=== PATIENT | female | born 1960 | race Caucasian/White ===

== ENCOUNTER → 2017-12-24 | Outpatient (CLI) | payer BC ==
--- NOTE | 2017-12-25 13:36 | MM ---
Reason for exam: screening (asymptomatic). Last mammogram was performed 1 year and 2 months ago. History: Patient is postmenopausal. Physical Findings: A clinical breast exam by your physician is recommended on an annual basis and results should be correlated with mammographic findings. MG Screening Mammo w CAD Bilateral CC and MLO view(s) were taken. Prior study comparison: October 10, 2016, bilateral MG screening mammo w CAD. November 06, 2012, bilateral digital screening mammo w/CAD. There are scattered fibroglandular densities. No significant changes when compared with prior studies. ASSESSMENT: Negative, BI-RAD 1 RECOMMENDATION: Routine screening mammogram of both breasts in 1 year.
== END | disposition home or self-care (01) ==
LOC: RADMAMWWP 09:57
PROVIDERS: ATTEND Family Medicine
DX: Z12.31 Encounter for screening mammogram for malignant neoplasm of breast (principal)
CPT/HCPCS: 77067

== ENCOUNTER → 2019-06-03 | Outpatient (CLI) | payer BC ==
--- NOTE | 2019-06-04 07:39 | MM ---
Reason for exam: screening (asymptomatic). Last mammogram was performed 1 year and 5 months ago. History: Patient is postmenopausal. Physical Findings: A clinical breast exam by your physician is recommended on an annual basis and results should be correlated with mammographic findings. MG 3D Screening Mammo W/Cad Bilateral CC and MLO view(s) were taken. Prior study comparison: December 24, 2017, bilateral MG screening mammo w CAD. October 10, 2016, bilateral MG screening mammo w CAD. There are scattered fibroglandular densities. No suspicious abnormality. No significant changes when compared with prior studies. ASSESSMENT: Negative, BI-RAD 1 RECOMMENDATION: Routine screening mammogram of both breasts in 1 year.
== END | disposition home or self-care (01) ==
LOC: RADMAMWWP 09:55
PROVIDERS: ATTEND Family Medicine
DX: Z12.31 Encounter for screening mammogram for malignant neoplasm of breast (principal)
CPT/HCPCS: 77063; 77067

== ENCOUNTER → 2021-10-25 | Outpatient (CLI) | payer BC ==
--- NOTE | 2021-10-26 12:56 | MM ---
Reason for exam: screening (asymptomatic). Last mammogram was performed 2 years and 5 months ago. History: Patient is postmenopausal. Physical Findings: A clinical breast exam by your physician is recommended on an annual basis and results should be correlated with mammographic findings. MG 3D Screening Mammo W/Cad Bilateral CC and MLO view(s) were taken. Prior study comparison: June 03, 2019, bilateral MG 3d screening mammo w/cad. December 24, 2017, bilateral MG screening mammo w CAD. There are scattered fibroglandular densities. There is no discrete abnormality. ASSESSMENT: Negative, BI-RAD 1 RECOMMENDATION: Routine screening mammogram of both breasts in 1 year.
== END | disposition home or self-care (01) ==
LOC: RADMAMWWP 16:34
PROVIDERS: ATTEND Family Medicine
DX: Z12.31 Encounter for screening mammogram for malignant neoplasm of breast (principal); Z78.0 Asymptomatic menopausal state
CPT/HCPCS: 77063; 77067

== ENCOUNTER → 2022-01-24 | Outpatient (CLI) | payer BC ==
[2022-01-24 18:26] LABS: Basophils # (A) 0.07 X 10*3/uL (0.00-0.10); Basophils % (A) 0.9 %; Eosinophils # (A) 0.25 X 10*3/uL (0.04-0.35); Eosinophils % (A) 3.2 %; HCT 44.2 % (37.2-46.3); HGB 14.3 g/dL (12.0-15.0); Immature Grans, Automated 0.5 %; Lymphocytes # (A) 1.01 X 10*3/uL (0.90-5.00); Lymphocytes % (A) 13.1 %; MCH 28.7 pg (27.0-32.0); MCHC 32.4 g/dL (32.0-37.0); MCV 88.6 fL (80.0-97.0); Mean Platelet Volume 12.4 fL (9.5-12.2); Monocytes # (A) 0.47 X 10*3/uL (0.20-1.00); Monocytes % (A) 6.1 %; NRBC Per 100 WBC 0 /100 WBCS (0.0-0.0); Neutrophils # (A) 5.87 X 10*3/uL (1.80-7.70); Neutrophils % (A) 76.2 %; Platelet Count 288 X 10*3/uL (140-440); RBC 4.99 X 10*6/uL (4.10-5.20); RDW 14.1 % (11.5-14.5); WBC 7.71 X 10*3/uL (4.50-10.00)
== END | disposition home or self-care (01) ==
LOC: LABPAT 11:03
PROVIDERS: ATTEND Obstetrics & Gynecology Obstetrics
DX: Z01.812 Encounter for preprocedural laboratory examination (principal); N84.0 Polyp of corpus uteri; N95.0 Postmenopausal bleeding
CPT/HCPCS: 85025

== ENCOUNTER 2022-01-29 08:25 | Day surgery (SDC) | payer BC ==
[2022-01-24 15:51] VITALS: BMI 29.9
[~2022-01-29 08:25] MED LIST: DEXAMETHASONE SOD PHOSPHATE 4 MG/ML 1 ML VIAL IV ONE; LACTATED RINGERS 1,000 ML IV SCH; LIDOCAINE 1% (10MG/ML) FOR IV START INTRADERMA PRN; ONDANSETRON 4 MG/2 ML VIAL IVP ONE; Pre Op ABX Message 1 EACH MISC MISCELLANE ONE; SCOPOLAMINE 1.5MG/72HR PATCH TRANSDERM ONE; fentaNYL (PF) 50 MCG/ML 2 ML AMP IV PRN
[2022-01-29] MEDS ORDERED: KETOROLAC 15 MG/ML 1 ML VIAL ONE (10:24)
[2022-01-29] MEDS ORDERED: PROPOFOL 10 MG/ML 20 ML VIAL IV ONE (10:24)
[2022-01-29] MEDS ORDERED: MIDAZOLAM 2 MG/2 ML VIAL ONE (10:24)
[2022-01-29] MEDS ORDERED: fentaNYL (PF) 50 MCG/ML 2 ML AMP ONE (10:24)
[2022-01-29] MEDS ORDERED: LIDOCAINE 1% INJ 10MG/ML (20 ML MDV) ONE (10:24)
--- NOTE | 2022-01-29 10:54 | P.OP ---
Date of Procedure: 01/29/22 Preoperative Diagnosis: Postmenopausal bleeding, endometrial polyp Postoperative Diagnosis: Same Procedure(s) Performed: Hysteroscopy, dilation and curettage Anesthesia: MAC Surgeon: Jannette Layne Estimated Blood Loss (ml): 2 IV fluids (ml): 200 Urine output (ml): 50 Pathology: other (Endometrial curettings) Condition: stable Disposition: PACU Indications for Procedure: Postmenopausal bleeding, endometrial biopsy revealing endometrial polyp. Operative Findings: Normal atrophic appearing endometrial cavity Description of Procedure: Patient was taken back to the operating suite where general anesthesia was obtained without difficulty by the anesthesia department. She was prepped and draped in normal sterile fashion in the dorsal lithotomy position. A red rubber catheter was then used to drain the bladder of clear yellow urine. A weighted speculum was placed in the posterior vaginal vault the anterior lip the cervix is visualized and grasped with a single-tooth tenaculum. The endocervical canal was then serially dilated. Hysteroscope was placed through the cervix and toward the endometrial cavity the cavity was intact and atrophic in nature no polyps were appreciated pictures were taken and the hysteroscope was removed. A sharp curettage was then performed this specimen was then sent to pathology for analysis. The single-tooth tenaculum was taken off of the anterior lip of the cervix hemostasis was appreciated. All instruments were then removed from the patient's vaginal vault. All counts were noted to be correct 2 at the end of the procedure. Patient tolerated procedure well and was taken the recovery room awake in stable condition.
[2022-01-29 11:02] VITALS: RESP 16; TEMP 96.9
[2022-01-29 11:53] VITALS: BP 135/72; PULSE 72
== END 2022-01-29 12:33 | disposition home or self-care (01) ==
LOC: OR 08:25
PROVIDERS: ATTEND Obstetrics & Gynecology Obstetrics
DX: N84.0 Polyp of corpus uteri (principal); N95.0 Postmenopausal bleeding; F41.9 Anxiety disorder, unspecified; J45.909 Unspecified asthma, uncomplicated; F32.A Depression, unspecified; J44.9 Chronic obstructive pulmonary disease, unspecified; Z98.890 Other specified postprocedural states; Z88.5 Allergy status to narcotic agent; Z83.3 Family history of diabetes mellitus; Z80.1 Family history of malignant neoplasm of trachea, bronchus and lung; Z87.891 Personal history of nicotine dependence
CPT/HCPCS: 88305; 58558; J2250; J1100; J2405; J2001; J3010; J1885; J2704

== ENCOUNTER → 2023-07-08 | Outpatient (CLI) | payer BC ==
--- NOTE | 2023-07-09 10:09 | MM ---
Reason for Exam: Screening (asymptomatic). Last mammogram was performed 1 year(s) and 8 month(s) ago. Patient History: Menarche at age 9. First Full-Term at age 25. Postmenopausal. Risk Values: Katerina 5 year model risk: 2.0%. NCI Lifetime model risk: 7.9%. Prior Study Comparison: 12/24/2017 Bilateral Screening Mammogram, [facility]. 06/03/2019 Bilateral Screening Mammogram, [facility]. 10/25/2021 Bilateral Screening Mammogram, [facility]. Tissue Density: There are scattered fibroglandular densities. Findings: Analyzed By CAD. There is no suspicious group of microcalcifications or new suspicious mass in either breast. Overall Assessment: Negative, BI-RAD 1 Management: Screening Mammogram of both breasts in 1 year. A clinical breast exam by your physician is recommended on an annual basis and results should be correlated with mammographic findings. Note on Katerina scores and lifetime risk: 1. A Katerina score greater than 3% is considered moderate risk. If this is the case, consider specialist referral to assess eligibility for a risk reducing agent. If overall lifetime risk for the development of breast cancer is 20% or higher, the patient may qualify for future screening with alternating mammogram and breast MRI. Electronically signed and approved by: Eren Henning D.O.
== END | disposition home or self-care (01) ==
LOC: RADMAMWWP 12:23
PROVIDERS: ATTEND Family Medicine
DX: Z12.31 Encounter for screening mammogram for malignant neoplasm of breast (principal); Z78.0 Asymptomatic menopausal state
CPT/HCPCS: 77063; 77067

== ENCOUNTER 2024-02-24 17:04 | Emergency (ER) | payer BC, MEDICARE ==
[2024-02-24 17:21] VITALS: TEMP 97.9
[2024-02-24 17:43] LABS: Basophils # (A) 0.1 k/uL (0-0.2); Basophils % (A) 1 %; Eosinophils # (A) 0.4 k/uL (0-0.7); Eosinophils % (A) 3 %; HCT 48.1 % (34.0-46.0); HGB 15.6 gm/dL (11.4-16.0); Lymphocytes # (A) 1.1 k/uL (1.0-4.8); Lymphocytes % (A) 9 %; MCH 28.3 pg (25.0-35.0); MCHC 32.4 g/dL (31.0-37.0); MCV 87.4 fL (80.0-100.0); Mean Platelet Volume 9.5; Monocytes # (A) 0.5 k/uL (0-1.0); Monocytes % (A) 4 %; Neutrophils # (A) 9.9 k/uL (1.3-7.7); Neutrophils % (A) 82 %; Platelet Count 326 k/uL (150-450); RBC 5.51 m/uL (3.80-5.40); RDW 13.2 % (11.5-15.5); WBC 12.1 k/uL (3.8-10.6)
[2024-02-24 17:52] LABS: ALT 29 U/L (4-34); AST 31 U/L (14-36); African American GFR (CKD) >90 (>60 ml/min/1.73 sqM); Albumin 4.3 g/dL (3.5-5.0); Alkaline Phosphatase 103 U/L (38-126); Anion Gap 6 mmol/L; Blood Urea Nitrogen 11 mg/dL (7-17); Calcium 9.6 mg/dL (8.4-10.2); Carbon Dioxide 31 mmol/L (22-30); Chloride 104 mmol/L (98-107); Glucose 107 mg/dL (74-99); Magnesium 2.1 mg/dL (1.6-2.3); Non-African American GFR(CKD) >90 (>60 ml/min/1.73 sqM); Potassium 3.9 mmol/L (3.5-5.1); Sodium 141 mmol/L (137-145); Total Bilirubin 0.4 mg/dL (0.2-1.3); Total Protein 7.3 g/dL (6.3-8.2)
--- NOTE | 2024-02-24 17:54 | XR ---
EXAMINATION TYPE: XR chest 2V DATE OF EXAM: 02/24/2024 COMPARISON: None INDICATION: Chest pain TECHNIQUE: Frontal and lateral views of the chest are obtained. FINDINGS: The heart size is normal. The pulmonary vasculature is normal. The lungs are clear. IMPRESSION: 1. No acute pulmonary process.
[2024-02-24 17:55] LABS: INR 0.9 (<1.2); Partial Thromboplastin Time 23.1 sec (22.0-30.0); Prothrombin Time 9.7 sec (10.0-12.5)
--- NOTE | 2024-02-24 18:30 | ED ---
Chest Pain HPI - General Source: patient, RN notes reviewed Mode of arrival: ambulatory Limitations: no limitations <Kelsi Bee - Last Filed: 02/24/24 18:35> <Leila Logan - Last Filed: 02/25/24 01:52> - General Chief Complaint: Chest Pain Stated Complaint: Chest pain Time Seen by Provider: 02/24/24 18:30 - History of Present Illness Initial Comments: Quick note: 63-year-old female presenting to the ER with chief complaint of right-sided chest pain. She states that started yesterday and is endorsing sh ortness of breath. Denies any known cardiac history. (Kelsi Bee) 63-year-old female presenting with chief complaint of chest pain. Pain started yesterday. Located over the right side of the chest. It is an aching pain. She states that she does get some shortness of breath associated with the pain. Pain is worse on palpation. She was seen at her PCPs office today, who advised her to report to the ER. She has no lower extremity swelling, history of blood clots, recent surgery, long travel. No known cardiac history. No cough, congestion, sore throat, fever, chills, nausea, vomiting. (Leila Logan) - Related Data Home Medications Medication Instructions Recorded Confirmed Albuterol Sulfate [Albuterol 2 puff PO Q6H PRN 01/24/22 01/24/22 Sulfate Hfa] Ascorbic Acid [Vitamin C] 500 mg PO DAILY 01/24/22 01/24/22 Budesonide/Glycopyr/Formoterol 1 puff INHALATION BID 01/24/22 01/24/22 [Breztri Aerosphere Inhaler] Cholecalciferol [Vitamin D3 (25 25 mcg PO DAILY 01/24/22 01/24/22 Mcg = 1000 Iu)] Zinc 50 mg PO DAILY 01/24/22 01/24/22 Previous Rx's Medication Instructions Recorded methylPREDNISolone Dose Pack 4 mg PO DIRECTED #1 packet 02/25/24 [Medrol Dose Pack] Allergies Allergy/AdvReac Type Severity Reaction Status Date / Time codeine AdvReac Nausea & Verified 02/24/24 17:09 Vomiting Review of Systems ROS Other: All systems not noted in ROS Statement are negative. <Kelsi Bee - Last Filed: 02/24/24 18:35> ROS Other: All systems not noted in ROS Statement are negative. <Leila Logan - Last Filed: 02/25/24 01:52> ROS Statement: Those systems with pertinent positive or pertinent negative responses have been documented in the HPI. Past Medical History Past Medical History: COPD History of Any Multi-Drug Resistant Organisms: None Reported Past Psychological History: No Psychological Hx Reported Smoking Status: Former smoker Past Alcohol Use History: Daily Past Drug Use History: None Reported <Kelsi Bee - Last Filed: 02/24/24 18:35> General Exam Limitations: no limitations <Kelsi Bee - Last Filed: 02/24/24 18:35> Limitations: no limitations General appearance: alert, in no apparent distress Head exam: Present: atraumatic, normocephalic Eye exam: Present: normal appearance, EOMI Neck exam: Present: normal inspection. Absent: meningismus Respiratory exam: Present: normal lung sounds bilaterally, chest wall tenderness. Absent: respiratory distress, wheezes, rales, rhonchi, stridor Cardiovascular Exam: Present: regular rate, normal rhythm, normal heart sounds. Absent: systolic murmur, diastolic murmur, rubs, gallop, clicks Extremities exam: Absent: pedal edema Neurological exam: Present: alert, oriented X3 Psychiatric exam: Present: normal affect, normal mood Skin exam: Present: warm, dry <Leila Logan - Last Filed: 02/25/24 01:52> - General Exam Comments Initial Comments: Visual Physical Exam Vital signs reviewed General: Well-appearing, nontoxic, no acute distress. Head: Normocephalic, atraumatic Eyes: PERRLA, EOMI ENT: Airway patent Chest: Nonlabored breathing Skin: No visual rash, normal skin tone Neuro: Alert and oriented 3 Musculoskeletal: No gross abnormalities (Kelsi Bee) Course Vital Signs 02/24/24 02/25/24 17:07 00:32 Temperature 97.9 F Pulse Rate 117 H 84 Respiratory 20 18 Rate Blood Pressure 167/84 146/94 O2 Sat by Pulse 95 97 Oximetry Chest Pain MDM <Kelsi Bee - Last Filed: 02/24/24 18:35> <Leila Logan - Last Filed: 02/25/24 01:52> - MDM I performed the quick note portion of this chart. Electronically signed by Kelsi Bee PA-C (Kelsi Bee) Was pt. sent in by a medical professional or institution ([facility], VISUAL EFFECTS ARTIST, urgent care, hospital, or care home...) When possible be specific @ -Sent by PCP Did you speak to anyone other than the patient for history (EMS, parent, family, police, friend...)? What history was obtained from this source @ -No Did you review nursing and triage notes (agree or disagree)? Why? @ -I reviewed and agree with nursing and triage notes Were old charts reviewed (outside hosp., previous admission, EMS record, old EKG, old radiological studies, urgent care reports/EKG's, care home records)? Report findings @ -No old charts were reviewed Differential Diagnosis (chest pain, altered mental status, abdominal pain women, abdominal pain men, vaginal bleeding, weakness, fever, dyspnea, syncope, headache, dizziness, GI bleed, back pain, seizure, CVA, palpatations, mental health, musculoskeletal)? @ -MDM Differential Chest Pain: Stable Angina, Unstable Angina, STEMI, NSTEMI Aortic Dissection, Pneumothorax, Musculoskeletal, Esophageal Spasm GERD, Cholecystitis, Pancreatitis, Zoster This is not meant to be an all-inclusive list. EKG interpreted by me (3pts min.). @ -EKG shows sinus tachycardia with occasional ventricular premature complex. Ventricular rate 105. MN interval 145. QRS 101. QT 336. QTc 397. X-rays interpreted by me (1pt min.). @ -Chest x-ray shows no acute process CT interpreted by me (1pt min.). @ -None done U/S interpreted by me (1pt. min.). @ -None done What testing was considered but not performed or refused? (CT, X-rays, U/S, labs)? Why? @ -None What meds were considered but not given or refused? Why? @ -None Did you discuss the management of the patient with other professionals (professionals i.e. [facility], VISUAL EFFECTS ARTIST, lab, RT, psych nurse, social media executive, medical associate, teacher, operational intelligence officer, case consultant)? Give summary @ -No Was smoking cessation discussed for >3mins.? @ -No Was critical care preformed (if so, how long)? @ -No Were there social determinants of health that impacted care today? How? (Homelessness, low income, unemployed, alcoholism, drug addiction, transportation, low edu. Level, literacy, decrease access to med. care, retirement, rehab)? @ -No Was there de-escalation of care discussed even if they declined (Discuss DNR or withdrawal of care, Hospice)? DNR status @ -No What co-morbidities impacted this encounter? (DM, HTN, Smoking, COPD, CAD, Cancer, CVA, ARF, Chemo, Hep., AIDS, mental health diagnosis, sleep apnea, morbid obesity)? @ -None Was patient admitted / discharged? Hospital course, mention meds given and route, prescriptions, significant lab abnormalities, going to OR and other pertinent info. @ -63-year-old female presenting with chief complaint of chest pain. This pain is aching, located on the right side, and reproducible. Started yesterday. Workup is initiated by triage. Patient has negative troponins x 2. Chest x-ray shows no acute process. EKG shows sinus tachycardia with occasional ventricular premature complexes. She is later placed in a room and evaluated by myself. Heart and lungs are clear to auscultation, pain is reproducible on palpation, no lower extremity swelling. D-dimer is 0.54. Patient is given Toradol and Decadron, on reassessment she reports improvement in her symptoms. Pain likely stems from pleurisy. Patient is treated with Medrol Dosepak and instructed to follow-up with her PCP. Discharged home. Follow-up with PCP. Report back to ER with any new or worsening symptoms. Discussed return parameters and answered all questions. Patient conveyed verbal understanding and agreed to the plan. I discussed this case in detail with my attending Dr. Ozuna Undiagnosed new problem with uncertain prognosis? @ -No Drug Therapy requiring intensive monitoring for toxicity (Heparin, Nitro, Insulin, Cardizem)? @ -No Were any procedures done? @ -No Diagnosis/symptom? @ -Pleurisy Acute, or Chronic, or Acute on Chronic? @ -Acute Uncomplicated (without systemic symptoms) or Complicated (systemic symptoms)? @ -Uncomplicated Side effects of treatment? @ -No Exacerbation, Progression, or Severe Exacerbation? @ -No Poses a threat to life or bodily function? How? (Chest pain, [place], [place], pneumonia, PE, COPD, DKA, ARF, appy, cholecystitis, CVA, Diverticulitis, Homicidal, Suicidal, threat to staff... and all critical care pts) @ -Low likelihood (Leila Logan) Disposition <Kelsi Bee - Last Filed: 02/24/24 18:35> Is patient prescribed a controlled substance at d/c from ED?: No Time of Disposition: 00:55 <Leila Logan - Last Filed: 02/25/24 01:52> Clinical Impression: Pleurisy Disposition: HOME SELF-CARE Condition: Good Instructions (If sedation given, give patient instructions): Chest Pain (ED), Pleurisy (ED) Additional Instructions: Follow-up with PCP. Report back to ER with any new or worsening symptoms. Prescriptions: methylPREDNISolone Dose Pack [Medrol Dose Pack] 4 mg PO DIRECTED #1 packet Referrals: Koyb Byrd DO [Primary Care Provider] - 1-2 days
[2024-02-25] MEDS: KETOROLAC 15 MG/ML 1 ML VIAL IVP STA (00:35)
[2024-02-25] MEDS: DEXAMETHASONE SOD PHOSPHATE 10 MG/ML 1 ML VIAL IVP STA (00:37)
[2024-02-25 01:06] VITALS: BP 146/94; PULSE 84; RESP 18
== END 2024-02-25 01:00 | disposition home or self-care (01) ==
LOC: EC 17:04
DX: R09.1 Pleurisy (principal); Z87.891 Personal history of nicotine dependence; Z88.5 Allergy status to narcotic agent
CPT/HCPCS: 36415; 71046; 80053; 83735; 84484; 85025; 85379; 85610; 85730; 93005; 96374; 96375; 99285

== ENCOUNTER → 2024-09-15 | Outpatient (CLI) | payer MEDICARE ==
--- NOTE | 2024-09-15 14:14 | MM ---
Reason for Exam: Screening (asymptomatic). Last mammogram was performed 1 year(s) and 3 month(s) ago. Patient History: Menarche at age 9. First Full-Term at age 25. Postmenopausal. Risk Values: Katerina 5 year model risk: 2.0%. NCI Lifetime model risk: 7.6%. Prior Study Comparison: 06/03/2019 Bilateral Screening Mammogram, [facility]. 10/25/2021 Bilateral Screening Mammogram, [facility]. 07/08/2023 Bilateral MG 3D screening mammo w/cad, [facility]. Tissue Density: There are scattered areas of fibroglandular density. Findings: Analyzed By CAD. There is no suspicious group of microcalcifications or new suspicious mass in either breast. Overall Assessment: Benign, BI-RAD 2 Management: Screening Mammogram of both breasts in 1 year. . Patient should continue monthly self-breast exams. A clinical breast exam by your physician is recommended on an annual basis. This exam should not preclude additional follow-up of suspicious palpable abnormalities. Note on Katerina scores and lifetime risk: 1. A Katerina score greater than 3% is considered moderate risk. If this is the case, consider specialist referral to assess eligibility for a risk reducing agent. 2. If overall lifetime risk for the development of breast cancer is 20% or higher, the patient may qualify for future screening with alternating mammogram and breast MRI. [facility], , 09/15/2024 2:11 PM. Electronically signed and approved by: Deepak Zee M.D. Radiologis
--- NOTE | 2024-09-15 19:47 | BD ---
EXAMINATION TYPE: Axial Bone Density DATE OF EXAM: 09/15/2024 CLINICAL HISTORY: 63 years old Female. ICD-10 CODE: Z78.0 post menopaus , Additional History: Height: 5 ft 6 in Weight: 183 FRAX RISK QUESTIONS: Alcohol (3 or more units per day): no Family History (Parent hip fracture): yes Glucocorticoids (More than 3mos): no (Ex: prednisone, prednisolone, methylprednisolone, dexamethasone, and hydrocortisone). History of Fracture in Adulthood: no Secondary Osteoporosis: 1. Type 1 Diabetes: no 2. Hyperthyroidism: no 3. Menopause before 45: no 4. Malnutrition: no 5. Chronic liver disease: no Rheumatoid Arthritis: no Current Tobacco Use: no RISK FACTORS HISTORY OF: Surgery to Spine/Hip(right/left)/Wrist (right/left): no MEDICATIONS: Thyroid Medications: none Osteoporosis Medications: none EXAM MEASUREMENTS: Bone mineral densitometry was performed using the [employer] System. Bone mineral density as measured about the Lumbar spine is: ----- L1-L4(G/cm2): 0.937 T Score Values are as follows: ----- L1: -1.1 ----- L2: -2.6 ----- L3: -2.9 ----- L4: -1.7 ----- L1-L4: -2.0 Z Score Values are as follows: ----- L1: -0.1 ----- L2: -1.6 ----- L3: -1.9 ----- L4: -0.7 ----- L1-L4: -1.0 Bone mineral density has: decreased -3.4 % since study of: 2016 Bone mineral density about the R hip (g/cm2): 0.769 Bone mineral density about the L hip (g/cm2): 0.715 T Score values are as follows: -----R Neck: -1.9 -----L Neck: -2.3 -----R Total: -1.5 -----L Total: -1.1 Z Score values are as follows: -----R Neck: -0.8 -----L Neck: -1.2 -----R Total: -0.7 -----L Total: -0.3 Bone mineral density has: decreased -5.6 % since study of: 2016 FRAX%s: The graph provided illustrates a 21.6% chance for a major osteoporotic fx and a 2.7% chance f or the hips probability for fx in 10 years time. IMPRESSION: Osteopenia (T Score between -2.5 and -1). There is slightly increased risk of fracture and the patient may be considered for treatment. Re-Screen 2-5 years. NOTE: T-SCORE=SD OF THE YOUNG ADULT MEAN. [facility], , 09/15/2024 7:44 PM
== END | disposition home or self-care (01) ==
LOC: RADMAMWWP 11:00
PROVIDERS: ATTEND Family Medicine
DX: Z12.31 Encounter for screening mammogram for malignant neoplasm of breast (principal); R92.323 Mammographic fibroglandular density, bilateral breasts; M85.89 Other specified disorders of bone density and structure, multiple sites; Z78.0 Asymptomatic menopausal state
CPT/HCPCS: 77063; 77067; 77080

== ENCOUNTER → 2024-11-24 | Outpatient (CLI) | payer MEDICARE | END | disposition home or self-care (01) | LOC: LABWHC1 12:42 | PROVIDERS: ATTEND Internal Medicine Critical Care Medicine | DX: J44.9 Chronic obstructive pulmonary disease, unspecified (principal) | CPT/HCPCS: 36415; 82785; 85008 ==

== ENCOUNTER → 2025-03-07 | Outpatient (CLI) | payer MEDICARE ==
--- NOTE | 2025-03-07 15:29 | US ---
EXAMINATION TYPE: US venous doppler duplex LE BI; LOWER EXTREMITY VENOUS INSUFFICIENCY DATE OF EXAM: 03/07/2025 COMPARISON: NONE CLINICAL INDICATION: Female, 64 years old with history of I87.2 VENOUS INSUFFICIENCY (CHRONIC) (PERIP HERAL); bilateral calf discomfort, restless legs TECHNIQUE: Grayscale color Doppler and spectral Doppler imaging of the lower extremity veins. FINDINGS: SIDE PERFORMED: bilat 1) Color flow is present and patency is documented in the following vessels. No DVT or SVT is noted . Common Femoral Vein Deep Femoral Vein Femoral Vein Popliteal Vein Proximal Calf Veins Greater Saph Vein Upper Small Saph Vein 2) There is venous reflux noted at the following venous levels: none Color Doppler imaging shows patency of the vessels. Spectral waveforms are within normal limits. IMPRESSION: No evidence for venous insufficiency/reflux. [facility], , 03/07/2025 3:27 PM
== END | disposition home or self-care (01) ==
LOC: RADUSWWP 14:26
PROVIDERS: ATTEND Family Medicine
DX: I87.2 Venous insufficiency (chronic) (peripheral) (principal)
CPT/HCPCS: 93970